=== PATIENT | male | born 1965 | race African-American/Black ===

== ENCOUNTER 2025-03-14 15:17 | Outpatient (CLI) | payer OTHER ==
[2025-03-14 16:46] LABS: #Basophils 0.04 10x3/uL (0.0-0.2); #Eosinophils 0.16 10x3/uL (0.0-0.5); #Monocytes 0.78 10x3/uL (0.0-1.1); #Neutrophils 5.83 10x3/uL (1.5-8.4); %Basophils 0.4 % (0.0-2.0); %Eosinophils 1.7 % (0.0-6.0); %Lymphocytes 26.8 % (18.0-47.0); %Monocytes 8.3 % (0.0-10.0); %Neutrophils 62.5 % (40.0-75.0); Hematocrit 43.5 % (38.8-50.0); Hemoglobin 14.2 g/dL (13.5-17.5); Mean Corpuscular Hemoglobin 29.6 pg (27.0-33.0); Mean Corpuscular Volume 90.6 fL (81.2-95.1); Platelet Count 230 10x3/uL (150-450); Red Blood Cell (RBC) Count 4.80 10x6/uL (4.32-5.72); White Blood Cell (WBC) Count 9.35 10x3/uL (3.5-10.5)
[2025-03-14 17:41] LABS: Anion Gap 12 mmol/L (10-20); BUN (Urea Nitrogen) 16 mg/dL (8.4-25.7); Calc. Creatinine Clearance 0 mL/min (70-130); Calcium 9.3 mg/dL (7.8-10.44); Carbon Dioxide 27 mmol/L (22-29); Chloride 106 mmol/L (98-107); Glucose 100 mg/dL (70-105); Potassium 3.7 mmol/L (3.5-5.1); Sodium 141 mmol/L (136-145)
== END 2025-03-14 15:18 | disposition home or self-care (01) ==
LOC: CSHLAB 15:17
PROVIDERS: ATTEND Surgery
DX: Z01.818 Encounter for other preprocedural examination (principal); K43.9 Ventral hernia without obstruction or gangrene
CPT/HCPCS: 80048; 85025; 93005; 93010